=== PATIENT | male | born 1955 | race Caucasian/White ===

== ENCOUNTER 2018-05-21 07:53 | Outpatient (CLI) | payer OTHER ==
[~2018-05-21] VITALS: Ht 170.2 cm; Wt 81.6 kg
[~2018-05-21 07:53] MED LIST: DOLOGEN CAPLET1 TAB PO; LEVAQUIN750 MG PO
== END 2018-05-21 08:05 | disposition home or self-care (01) ==
LOC: OFIC 805 07:53
DX: J31.0 Chronic rhinitis (principal); H61.23 Impacted cerumen, bilateral; J34.2 Deviated nasal septum

== ENCOUNTER 2018-11-05 07:56 | Outpatient (CLI) | payer OTHER | END 2018-11-05 08:07 | disposition home or self-care (01) | LOC: NUCLEAR 07:56 | DX: I87.2 Venous insufficiency (chronic) (peripheral) (principal) ==

== ENCOUNTER 2019-12-06 07:34 | Emergency (ER) | payer OTHER ==
[~2019-12-06] VITALS: Ht 170.2 cm; Wt 83.9 kg
[2019-12-06] MEDS ORDERED: NORVASC10 MG PO (07:57)
[2019-12-06] MEDS ORDERED: BIKTARVY 50-201 EACH PO (07:57)
[2019-12-06] MEDS ORDERED: VASOTEC20 M1 PO (07:57)
[2019-12-06] MEDS ORDERED: FOLIC ACID0.8 M1 PO (07:57)
== END 2019-12-06 18:10 | disposition home or self-care (01) ==
LOC: ER 07:34
DX: B20 Human immunodeficiency virus [HIV] disease (principal); G51.0 Bell's palsy; H60.8X1 Other otitis externa, right ear; H66.91 Otitis media, unspecified, right ear; R53.1 Weakness; Z03.818 Encounter for observation for suspected exposure to other biological agents ruled out
CPT/HCPCS: 70551

== ENCOUNTER 2019-12-10 10:56 | Outpatient (CLI) | payer OTHER ==
[~2019-12-10 10:56] MED LIST changes: +BIKTARVY 50-201 EACH PO; +FOLIC ACID0.8 M1 PO; +NORVASC10 MG PO; +VASOTEC20 M1 PO
== END 2019-12-10 11:30 | disposition home or self-care (01) ==
LOC: OFIC 805 10:56
PROVIDERS: ATTEND Otolaryngology
DX: R29.818 Other symptoms and signs involving the nervous system (principal); G51.0 Bell's palsy

== ENCOUNTER → 2019-12-29 | Outpatient (CLI) | payer OTHER | END | disposition home or self-care (01) | LOC: OFIC 805 12:00 | PROVIDERS: ATTEND Otolaryngology | DX: G51.0 Bell's palsy (principal); R29.818 Other symptoms and signs involving the nervous system ==